=== PATIENT | male | born 1955 | race Caucasian/White ===

== ENCOUNTER 2018-11-13 00:24 | Day surgery (SDC) | payer OTHER ==
[~2018-11-13] VITALS: Ht 177.8 cm; Wt 68.0 kg
[2018-11-13] VITALS (7 sets, daily range): BP systolic 97–120; BP diastolic 61–98
[~2018-11-13 00:24] MED LIST: LEVO50TA86 PO; VITAMINS
[2018-11-13] MEDS ORDERED: LIDOCAINE/SOD BICARB 8.4% SYR ID ONE (08:30)
[2018-11-13] MEDS ORDERED: NORMOSOL R SOLN(*) 1000 ML BAG 1,000 ML IV PRN (08:30)
[2018-11-13] MEDS ORDERED: LIDOCAINE MPF 1% 5 ML VIAL ONE (08:39)
[2018-11-13] MEDS ORDERED: PROPOFOL EMUL(*) 10MG/ML 20 ML 40 ML ONE (08:39)
== END 2018-11-13 10:38 | disposition home or self-care (01) ==
LOC: OR 00:24
PROVIDERS: ATTEND Family Medicine
DX: Z12.11 Encounter for screening for malignant neoplasm of colon (principal)
CPT/HCPCS: 00812; 45378; J2001; J2704